=== PATIENT | female | born 1955 | race Caucasian/White ===

== ENCOUNTER 2017-12-06 13:23 | Inpatient (IN) | payer MEDICAID ==
[2017-12-06] VITALS (14 sets, daily range): BP systolic 110–147; BP diastolic 72–108
[~2017-12-06] VITALS: Ht 149.9 cm; Wt 46.7 kg
--- NOTE | ~2017-12-06 | EC ---
PATIENT:ELISABETH BROWNE DATE OF SERVICE: 12/06/17 SEX: F MEDICAL RECORD: [id number] DATE OF : [birth year] LOCATION:D.M2 D.210 AGE OF PATIENT: 62 ADMISSION DATE: 12/06/17 REFERRING PHYSICIAN: INTERPRETING PHYSICIAN: MÓNICA GORDON MD ECHOCARDIOGRAM REPORT ECHO CHARGES 4 ECHO COMPLETE Date: 12/07 CLINICAL DIAGNOSIS: CHEST PAIN ECHOCARDIOGRAPHIC MEASUREMENTS (adult normal given) AC root (d.<3.7cm) 3.3 cm LV Septum d (<1.2 cm> 1.4 cm Valve Excursion 1.0 cm LV Septum (systole) 1.5 cm Left Atria (s.<4.0cm> 3.2 cm LVPW d(<1.2cm) 1.3 cm RV (d.<2.3cm) 4.0 cm LVPW (sytole) 1.4 cm LV diastole(<5.6CM) 4.8 cm MV E-F(>70mm/sec) cm LV systole 4.1 cm LVOT Diameter 1.5 cm MV exc.(>10mm) 1.2 cm Est.ejection fraction (50-75%) % DOPPLER: LVIT cm/sec A 73.0 cm/sec E 82.0 cm/sec LA cm/sec RVSP 44 mmHg LVOT 126 cm/sec AOP1/2T m/s Asc. Ao 134 cm/sec RVOT 59 cm/sec RA cm/sec PA 103 cm/sec AV Gradient Peak 7.14 mmHg AV Mean 4.21 mmHg AV Area 1.7 cm MV Gradient Peak 2.53 mmHg MV Mean 1.01 mmHg MV Area cm COMMENTS: Keeler Polygraph Operator: Dewayne PARKS Smoke Inspector: 1 Dr. Gordon TAPE# PACCS Pericardial Effusion N DATE OF SERVICE: 12/07/2017 PROCEDURE: Echocardiogram. FINDINGS: 1. Left ventricular chamber size is within normal limits. Left ventricular systolic function is markedly depressed. Overall ejection fraction 25%. 2. Left atrium is within normal limits at 3.2 cm. Right atrium and right ventricle chamber sizes are as well within normal limits. 3. Valvular structures have normal structure and motion. ECHOCARDIOGRAM REPORT [id number] ELISABETH BROWNE 4. Doppler interrogation reveals mild aortic insufficiency, mild mitral regurgitation, mild to moderate tricuspid regurgitation, no other valvular insufficiency or stenosis. Pulmonary systolic pressure is estimated at 44 mmHg. 5. No evidence of pericardial effusion or left ventricular thrombus. TRANSINT:[id number] Voice Confirmation ID: [id number] DOCUMENT ID: [id number] MÓNICA GORDON MD at 1741 CC: [id number] DICTATION DATE: 12/08/17 1036 OSTOMY RN: 12/08/17 1156 DIS IN 12/10/17 [place] [id number] [place] [id number]
--- NOTE | ~2017-12-06 | CN ---
PATIENT NAME:ELISABETH SHARMA MEDICAL RECORD: [id number] : 51 LOCATION:[facility] D.2103 ADMIT DATE: 12/06/17 ACCOUNT: [id number] CONSULTING PHYSICIAN: IRENE EDWARDS MD REFERRING PHYSICIAN: CARLOS KIRK MD DATE OF CONSULTATION: 12/07/2017 CONSULT REQUESTING PHYSICIAN: Carlos Kirk MD REASON FOR CONSULTATION: Bilateral lower lobe infiltrate, shortness of breath. HISTORY OF PRESENT ILLNESS: Ms. Sharma is a 62-year-old female, who is complaining of shortness of breath for the last few days. There are no fevers or chills. No night sweats, no cough, no wheezing. The patient came into the ER, evaluation found that her hemoglobin is 5 and she has acute UT. REVIEW OF SYSTEMS: As in history of present illness. PAST MEDICAL HISTORY: Nonsignificant. The patient has not seen any physician in a long time. ALLERGIES: There are no known drug allergy. MEDICATIONS: She is on aspirin at home. Other medications on [employer] is reviewed. PERSONAL AND SOCIAL HISTORY: The patient is smoking almost 1 pack per day. She claims that she quitted 10 days ago. She is a nondrinker. FAMILY HISTORY: Noncontributory. PHYSICAL EXAMINATION: GENERAL: Now, the patient is lying comfortable. She is not in acute distress. VITAL SIGNS: The blood pressure is 123/89, pulse is 77, respirations 20, temperature 98.4, SpO2 is 97% on 2 liters nasal cannula. HEENT: Conjunctivae pale. The sclera is not icteric. NECK: Supple, no JVD. CHEST: There are bibasilar crackles. No wheezing. HEART: Rhythm regular. Normal heart sounds. No murmur. ABDOMEN: Soft, bowel sounds present. No hepatosplenomegaly. RECTAL: Deferred. EXTREMITIES: No cyanosis, no clubbing, no pedal edema. SKIN: Warm, normal turgor. CENTRAL NERVOUS SYSTEM: The patient is awake and alert. There are no obvious cranial nerve abnormality. The gait was not tested. LABORATORY DATA: CBC: WBC of 5.2, hemoglobin 5.5, hematocrit 20.5, the platelet count 275. Chemistry: Sodium 140, potassium 4.5, chloride 106, bicarbonate is 18.1, BUN is 19, creatinine is 1. ABG: The pH is 7.40, pCO2 is 21.6, pO2 is 59, bicarbonate is 13.4. IMPRESSION: 1. Acute hypoxic respiratory failure, bilateral lower lobe pneumonia, most likely community-acquired pneumonia. 2. Severe anemia, most likely chronic gastrointestinal blood loss. CONSULT REPORT [id number] ELISABETH SHARMA 3. Tobacco dependence syndrome. 4. Suspect chronic obstructive pulmonary disease. 5. Non-Q wave myocardial infarction. 6. Metabolic acidosis most likely secondary to poor perfusion. The lactic acid is 3.97. RECOMMENDATION: 1. Xopenex and ipratropium nebulizer. 2. IV fluid. 3. Continue the present empiric antibiotic. 4. Blood transfusion. 5. Dr. Gordon and GI has been consulted. 6. Supplemental oxygen. 7. The patient was counseled to quit smoking. 8. Follow up labs and chest radiograph. Dr. Kirk, thank you for involving me in the care of Ms. Sharma. TRANSINT:[id number] Voice Confirmation ID: [id number] DOCUMENT ID: [id number] IRENE EDWARDS MD at 1110 CC: [id number] DICTATION DATE: 12/07/17 1434 SOCIAL MEDIA MARKETER: 12/07/17 1533 DIS IN 12/10/17 [place] [id number] [place] [address]
--- NOTE | ~2017-12-06 | CN ---
PATIENT NAME:ELISABETH SHARMA MEDICAL RECORD: [id number] : 51 LOCATION:[facility]2314 ADMIT DATE: 12/06/17 ACCOUNT: [id number] CONSULTING PHYSICIAN: MÓNICA JOHNSTON MD REFERRING PHYSICIAN: JEAN PIERRE ORTEGA MD DATE OF CONSULTATION: 12/06/2017 DIAGNOSES: 1. Non-Q-wave myocardial infarction. 2. Abnormal ECG. 3. Severe anemia. HISTORY OF PRESENT ILLNESS: Ms. Sharma presents with shortness of breath, found to have a hemoglobin in the 5.5 range. She as well has an elevated troponin and T-wave inversions in the lateral leads. She has no previous cardiac history, no previous GI bleed history. PHYSICAL EXAMINATION: GENERAL APPEARANCE: Well-nourished, well-developed, appears stated age. Level of distress, comfortable. PSYCHIATRIC: Mental status, alert, normal affect. Orientation, oriented to time, place and person. EYES: Lids and conjunctiva, noninjected. No discharge, no pallor. ENT: Lips, teeth, gums, normal dentition. Oropharynx, no cyanosis, no pallor. NECK: Carotid arteries, bilateral normal upstroke, no bruits, no thrills. JUGULAR VEINS: No jugular venous pressure or distention. CERVICAL LYMPH NODES: Nontender, nonenlarged. THYROID: Not enlarged. Nontender. No nodules. LUNGS: Respiratory effort, unlabored. CHEST: Normal curvature. No thoracic deformity. No chest wall tenderness. Percussion, resonant. Auscultation, clear. No wheezes, no rales, no rhonchi. CARDIOVASCULAR: Precordial exam, nondisplaced. No heaves or pericardial thrills. Rate and rhythm, regular. Heart sounds, normal S1, normal S2. No S3, no gallop, no rub. Systolic murmur, not heard. Diastolic murmur, not heard. EXTREMITIES: No cyanosis, no edema. Peripheral pulses, full and equal in all extremities, except as noted. No bruits appreciated. ABDOMEN: Soft, nondistended. Normal aorta. No bruit. Nontender. No masses. Liver, nontender, no hepatomegaly. Spleen, nontender, no splenomegaly. MUSCULOSKELETAL: No joint tenderness. No joint swelling. No erythema. NEUROLOGICAL: Normal gait, normal strength, normal tone. SKIN: Warm and dry. OVERALL IMPRESSION: Non-Q-wave myocardial infarction due to the stress of the anemia. No doubt she has underlying coronary artery disease with her abnormal ECG. However, at this time, we would suggest only transfusion and to address the etiology of the anemia. Would proceed with coronary angiography only after the hemoglobin is stabilized for 2-4 weeks. At this time, we will get an echocardiogram to evaluate her LV function, but no other cardiac workup or treatment is planned at this time. TRANSINT:[id number] Voice Confirmation ID: [id number] DOCUMENT ID: [id number] CONSULT REPORT [id number] ELISABETH SHARMA JEFFREY MD at 2002 CC: [id number] DICTATION DATE: 12/06/171751 DENTAL HYGIENE PROFESSOR: 12/06/17 1837 ADM IN [facility] [address] [place] [address]
[2017-12-06] MEDS ORDERED: ECOTRIN325 MG PO (13:29)
[2017-12-06 14:30] LABS: BASOPHILS 0.6 % (0-2); EOSINOPHILS 1.2 % (0-7); HEMATOCRIT 20.5 % (36.0-48.0); MCHC 26.8 g/dL (31.0-37.0); MCV 67.9 fL (80.0-100.0); MEAN PLATELET VOLUME 9.2 fL (7.4-10.4); MONOCYTES 5.4 % (2-11); NEUTROPHILS 68.8 % (40-80); PLATELET COUNT 275 10x3/uL (130-400); RBC 3.02 10x6/uL (4.00-5.40); RDW 17.2 % (11.5-14.5); WBC 5.2 10x3/uL (4.8-10.8)
[2017-12-06 14:37] LABS: HEMOGLOBIN 5.5 g/dL (12-16); MCH 18.2 pg (26.0-34.0)
[2017-12-06 15:01] LABS: ALBUMIN 3.5 g/dL (3.4-5.0); ALKALINE PHOSPHATASE 106 U/L (46-116); ALT (SGPT) 48 U/L (10-68); BILIRUBIN - TOTAL 0.39 mg/dL (0.2-1.3); CALC OSMOLALITY 280 mosm/kg (275-300); CALCIUM 8.7 mg/dL (8.5-10.1); CARBON DIOXIDE 20.8 mmol/L (21.0-32.0); CHLORIDE - SERUM 107 mmol/L (98-107); CKMB 12.5 U/L (0.0-3.6); CREATINE KINASE 166 UL (21-215); GLUCOSE 98 mg/dL (74-106); POTASSIUM - SERUM 3.8 mmol/L (3.5-5.1); PROTEIN - SERUM 7.9 g/dL (6.4-8.2); SODIUM 140 mmol/L (136-145); UREA NITROGEN 17 mg/dL (7-18); eGFR NON AFRICAN AMERICAN 59 mL/min (90-120)
[2017-12-06 15:04] LABS: TROPONIN-I 4.259 ng/mL (0.000-0.060)
[2017-12-06 15:47] LABS: % SATURATION 2 % (15-55); IRON 13 ug/dl (35-150); TOTAL IRON BIND CAPACITY 471 ug/dl (260-445)
[2017-12-06 16:06] LABS: UNSAT IRON BIND CAPACITY 458 ug/dl (150-375)
[2017-12-06 20:11] LABS: CKMB 16.3 U/L (0.0-3.6)
[2017-12-06 20:12] LABS: CREATINE KINASE 219 UL (21-215); TROPONIN-I 5.577 ng/mL (0.000-0.060)
[2017-12-06 21:31] LABS: APPEARANCE CLEAR (CLEAR); BILIRUBIN NEGATIVE (NEGATIVE); COLOR YELLOW (YELLOW); GLUCOSE NEGATIVE (NEGATIVE); KETONE NEGATIVE (NEGATIVE); NITRITE NEGATIVE (NEGATIVE); PROTEIN NEGATIVE (NEGATIVE); SPECIFIC GRAVITY 1.015 (1.005-1.020); UROBILINOGEN NORMAL (NORMAL)
[2017-12-06 21:32] LABS: BACTERIA MANY /hpf (NONE SEEN); EPITHELIAL CELLS 0-5 /hpf (0-5); RED CELLS - URINE OCC /hpf (0-5)
[2017-12-07] VITALS (27 sets, daily range): BP systolic 103–135; BP diastolic 75–97; BMI 20.8
[2017-12-07 00:22] LABS: HEMOGLOBIN 8.8 g/dL (12-16)
[2017-12-07 01:13] LABS: PRE-ALBUMIN 16.2 mg/dL (18.0-35.7); TROPONIN-I 7.433 ng/mL (0.000-0.060)
[2017-12-07 02:24] LABS: CKMB 17.8 U/L (0.0-3.6); CREATINE KINASE 266 UL (21-215)
[2017-12-07 02:25] LABS: TROPONIN-I 10.827 ng/mL (0.000-0.060)
[2017-12-07 03:37] LABS: BASOPHILS 0.1 % (0-2); EOSINOPHILS 0 % (0-7); HEMATOCRIT 33.1 % (36.0-48.0); IMMATURE GRANULOCYTES 0.1 % (0-5); LYMPHOCYTES 9.9 % (15-50); MCH 22.4 pg (26.0-34.0); MCHC 30.2 g/dL (31.0-37.0); MONOCYTES 4.8 % (2-11); NEUTROPHILS 85.1 % (40-80); PLATELET COUNT 235 10x3/uL (130-400); RBC 4.47 10x6/uL (4.00-5.40); RDW 18.8 % (11.5-14.5); WBC 8.7 10x3/uL (4.8-10.8)
[2017-12-07 03:41] LABS: INR 1.33 (0.85-1.17)
[2017-12-07 04:02] LABS: ALBUMIN 3.3 g/dL (3.4-5.0); BILIRUBIN - TOTAL 1.83 mg/dL (0.2-1.3); CALCIUM 8.7 mg/dL (8.5-10.1); CARBON DIOXIDE 18.1 mmol/L (21.0-32.0); PROTEIN - SERUM 7.6 g/dL (6.4-8.2)
[2017-12-07 04:06] LABS: ANION GAP 20.4 mmol/L (8-16); POTASSIUM - SERUM 4.5 mmol/L (3.5-5.1); TROPONIN-I 11.451 ng/mL (0.000-0.060)
[2017-12-07 09:23] LABS: HEMATOCRIT 33.2 % (36.0-48.0); HEMOGLOBIN 10.3 g/dL (12-16); MCH 22.8 pg (26.0-34.0); MCV 73.6 fL (80.0-100.0); PLATELET COUNT 240 10x3/uL (130-400); RBC 4.51 10x6/uL (4.00-5.40); RDW 18.5 % (11.5-14.5); WBC 7.9 10x3/uL (4.8-10.8)
[2017-12-07 10:00] LABS: LYMPHOCYTES 17 % (15-50); MONOCYTES 2 % (2-11); NEUTROPHILS 78 % (40-80); PLATELET ESTIMATE NORMAL
[2017-12-07 10:01] LABS: ANISOCYTOSIS 1+; POLYCHROMASIA OCC
[2017-12-08] VITALS (24 sets, daily range): BP systolic 106–142; BP diastolic 69–97; Ht 149.9 cm; Wt 46.7 kg
[2017-12-08 03:19] LABS: BASOPHILS 0.5 % (0-2); EOSINOPHILS 0.5 % (0-7); HEMATOCRIT 32.2 % (36.0-48.0); HEMOGLOBIN 9.9 g/dL (12-16); IMMATURE GRANULOCYTES 0.2 % (0-5); LYMPHOCYTES 21.1 % (15-50); MCH 22.7 pg (26.0-34.0); MCHC 30.7 g/dL (31.0-37.0); MCV 73.7 fL (80.0-100.0); MONOCYTES 8.9 % (2-11); NEUTROPHILS 68.8 % (40-80); PLATELET COUNT 239 10x3/uL (130-400); RBC 4.37 10x6/uL (4.00-5.40); WBC 8.7 10x3/uL (4.8-10.8)
[2017-12-08 03:33] LABS: ALBUMIN 2.8 g/dL (3.4-5.0); ANION GAP 18.1 mmol/L (8-16); BILIRUBIN - TOTAL 0.62 mg/dL (0.2-1.3); CALCIUM 8.2 mg/dL (8.5-10.1); CARBON DIOXIDE 17.5 mmol/L (21.0-32.0); CREATININE - SERUM 1.1 mg/dL (0.6-1.3); PROTEIN - SERUM 6.7 g/dL (6.4-8.2)
[2017-12-08 03:35] LABS: BILIRUBIN - DIRECT 0.19 mg/dL (0.00-0.30); BILIRUBIN - INDIRECT 0.46 mg/dL (0.00-1.00); BILIRUBIN - TOTAL 0.65 mg/dL (0.2-1.3)
[2017-12-08 03:38] LABS: POTASSIUM - SERUM 3.6 mmol/L (3.5-5.1)
[2017-12-09] VITALS (14 sets, daily range): BP systolic 121–155; BP diastolic 73–98
[2017-12-09 03:46] LABS: BASOPHILS 0.8 % (0-2); EOSINOPHILS 1.7 % (0-7); HEMATOCRIT 30.9 % (36.0-48.0); HEMOGLOBIN 9.4 g/dL (12-16); IMMATURE GRANULOCYTES 0.4 % (0-5); LYMPHOCYTES 27.5 % (15-50); MCH 22.7 pg (26.0-34.0); MCHC 30.4 g/dL (31.0-37.0); MCV 74.5 fL (80.0-100.0); MEAN PLATELET VOLUME 9.8 fL (7.4-10.4); MONOCYTES 11.8 % (2-11); NEUTROPHILS 57.8 % (40-80); PLATELET COUNT 238 10x3/uL (130-400); RBC 4.15 10x6/uL (4.00-5.40); WBC 7.8 10x3/uL (4.8-10.8)
[2017-12-09 04:15] LABS: ALBUMIN 2.6 g/dL (3.4-5.0); ANION GAP 16.3 mmol/L (8-16); BILIRUBIN - TOTAL 0.44 mg/dL (0.2-1.3); CALCIUM 7.8 mg/dL (8.5-10.1); CARBON DIOXIDE 19.2 mmol/L (21.0-32.0); CREATININE - SERUM 1.2 mg/dL (0.6-1.3); POTASSIUM - SERUM 3.5 mmol/L (3.5-5.1); PROTEIN - SERUM 6.1 g/dL (6.4-8.2)
[2017-12-09 12:11] LABS: FOLATE (FOLIC ACID) - SERUM 12.2 ng/mL (>3.0)
[2017-12-09 12:11] LABS: HELICOBACTER PYLORI IGM AB 3.2 units (0.0-8.9)
[2017-12-09 13:12] LABS: CEA 2.6 ng/mL (0.0-4.7)
[2017-12-10 00:18] VITALS: BP 111/74
[2017-12-10 05:00] LABS: BASOPHILS 0.7 % (0-2); EOSINOPHILS 1.8 % (0-7); HEMATOCRIT 31.3 % (36.0-48.0); HEMOGLOBIN 9.6 g/dL (12-16); IMMATURE GRANULOCYTES 0.5 % (0-5); LYMPHOCYTES 20.4 % (15-50); MCH 22.7 pg (26.0-34.0); MCHC 30.7 g/dL (31.0-37.0); MCV 74.2 fL (80.0-100.0); MEAN PLATELET VOLUME 9.9 fL (7.4-10.4); MONOCYTES 10.7 % (2-11); NEUTROPHILS 65.9 % (40-80); PLATELET COUNT 249 10x3/uL (130-400); RBC 4.22 10x6/uL (4.00-5.40); RDW 20.7 % (11.5-14.5); WBC 8.4 10x3/uL (4.8-10.8)
[2017-12-10 06:04] LABS: ALBUMIN 2.7 g/dL (3.4-5.0); ANION GAP 16.5 mmol/L (8-16); BILIRUBIN - TOTAL 0.3 mg/dL (0.2-1.3); CARBON DIOXIDE 16.9 mmol/L (21.0-32.0); CREATININE - SERUM 1.3 mg/dL (0.6-1.3); MAGNESIUM - SERUM 1.9 mg/dL (1.8-2.4); PHOSPHOROUS 3.8 mg/dL (2.5-4.9); POTASSIUM - SERUM 3.4 mmol/L (3.5-5.1); PROTEIN - SERUM 6.3 g/dL (6.4-8.2)
[2017-12-10 06:07] VITALS: BP 117/82
[2017-12-10 08:21] VITALS: BP 128/80
[2017-12-10 15:57] VITALS: BP 134/79
[2017-12-10] MEDS ORDERED: LEVAQUIN500 MG PO (16:32)
[2017-12-10] MEDS ORDERED: PROTONIX40 MG PO (16:32)
[2017-12-14 22:06] LABS: HEPATITIS C ANTIBODY >11.0 (0.0-0.9)
== END 2017-12-10 18:03 | disposition home or self-care (01) | DRG 193 ==
LOC: D.ER 13:23 → D.ICU 16:09 → D.M2 16:09 → D.EDHOLD 16:09 → D.ICU 18:12 → D.M2 12-09 15:29
PROVIDERS: Emergency Medicine; Family Medicine; Internal Medicine Gastroenterology
DX: J18.9 Pneumonia, unspecified organism (principal); I21.4 Non-ST elevation (NSTEMI) myocardial infarction; J96.01 Acute respiratory failure with hypoxia; I50.21 Acute systolic (congestive) heart failure; K92.2 Gastrointestinal hemorrhage, unspecified; J44.0 Chronic obstructive pulmonary disease with (acute) lower respiratory infection; J44.1 Chronic obstructive pulmonary disease with (acute) exacerbation; N39.0 Urinary tract infection, site not specified; N17.9 Acute kidney failure, unspecified; E87.2 Acidosis; J98.11 Atelectasis; I24.8 Other forms of acute ischemic heart disease; D64.9 Anemia, unspecified; R94.31 Abnormal electrocardiogram [ECG] [EKG]; F17.200 Nicotine dependence, unspecified, uncomplicated; I08.1 Rheumatic disorders of both mitral and tricuspid valves; I25.10 Atherosclerotic heart disease of native coronary artery without angina pectoris; K29.70 Gastritis, unspecified, without bleeding; I27.20 Pulmonary hypertension, unspecified; K22.4 Dyskinesia of esophagus